=== PATIENT | male | born 1965 | race Two or more races ===

== ENCOUNTER 2017-10-09 12:38 | Inpatient (IN) | payer OTHER, SELFPAY ==
[~2017-10-09] VITALS: Ht 165.1 cm; Wt 76.7 kg
[2017-10-09] MEDS ORDERED: SODIUM CHLORIDE 0.9% 1,000 ML IV ONE ×2 (13:11→18:00)
[2017-10-09] MEDS ORDERED: ONDANSETRON ODT 4 MG ONE (13:23)
[2017-10-09 13:27] LABS: BASOPHILS # (AUTO) 0.01 x10^3/uL (0-0.1); BASOPHILS % (AUTO) 0 % (0-1); EOSINOPHILS # (AUTO) 0.06 x10^3/uL (0-0.4); EOSINOPHILS % (AUTO) 1 % (1-7); LYMPHOCYTES # (AUTO) 1.44 x10^3/uL (1-3.4); LYMPHOCYTES % (AUTO) 24 % (22-44); MD NO; MEAN CORPUSCULAR HGB CONC 33.8 g/dL (33.2-36.2); MEAN CORPUSCULAR VOLUME 88.6 fL (81-97); MEAN PLATELET VOLUME 8.3 fL (7.4-10.4); MONOCYTES # (AUTO) 0.48 x10^3/uL (0.2-0.8); MONOCYTES % (AUTO) 8 % (2-9); NEUTROPHILS # (AUTO) 3.91 x10^3/uL (1.8-6.8); NEUTROPHILS % (AUTO) 66 % (42-75); PLATELET COUNT 219 x10^3/uL (130-400); RED BLOOD COUNT 4.82 x10^6/uL (4.38-5.82); RED CELL DISTRIBUTION WIDTH 13.1 % (9.4-14.8)
[2017-10-09] MEDS ORDERED: SODIUM CHLORIDE 0.9% 1,000ML IVBOLUS ONE (13:30)
[2017-10-09] MEDS ORDERED: PLEASE ENTER ALLERGIES MC SCH (13:30)
[2017-10-09] MEDS ORDERED: ONDANSETRON ODT 4 MG PO ONE (13:30)
[2017-10-09] MEDS ORDERED: MORPHINE SULFATE 4 MG/ML, 1ML IVPush PRN (13:30)
[2017-10-09] MEDS ORDERED: SODIUM CHLORIDE FLUSH 10ML SYR IVF ONE (13:30)
[2017-10-09 13:40] LABS: ALANINE AMINOTRANSFERASE 35 U/L (12-78); ALBUMIN 3.5 g/dL (3.4-5.0); ANION GAP 2 mmol/L (5-15); CALCIUM 8.6 mg/dL (8.5-10.1); CHLORIDE 108 mmol/L (98-107); CREATININE 1.16 mg/dL (0.7-1.3)
[2017-10-09 13:42] LABS: ALKALINE PHOSPHATASE 87 U/L (45-117); BILIRUBIN,TOTAL 0.3 mg/dL (0.2-1.0); TOTAL PROTEIN 7.4 g/dL (6.4-8.2)
[2017-10-09] MEDS ORDERED: MORPHINE SULFATE 4 MG/ML, 1ML ONE (13:45)
[2017-10-09] MEDS ORDERED: OMNIPAQUE 350 MG/ML, 100ML BOTTLE ONE (14:09)
[2017-10-09 14:15] LABS: ACETONE, SERUM Negative (Negative)
[2017-10-09 15:40] LABS: MICROSCOPIC NOT IND
[2017-10-09 15:48] LABS: CULTURE INDICATED? NO
[2017-10-09 16:02] LABS: CLOSTRIDIUM DIFFICILE ANTIGEN NEGATIVE; CLOSTRIDIUM DIFFICILE TOXIN NEGATIVE (Negative)
[2017-10-09] MEDS ORDERED: SODIUM CHLORIDE FLUSH 10ML SYR IVF PRN (18:30)
[2017-10-09] MEDS ORDERED: ACETAMINOPHEN 325 MG TABLET PO PRN (19:30)
[2017-10-09] MEDS ORDERED: DOCUSATE 100 MG CAPSULE PO PRN (19:30)
[2017-10-09] MEDS ORDERED: ONDANSETRON 2MG/ML, 2ML IVPush PRN (19:30)
[2017-10-09] MEDS ORDERED: morphine SULFATE 10 MG/ML, 1ML IVPush PRN (19:30)
[2017-10-09] MEDS ORDERED: ENALAPRILAT 1.25 MG/ML, 2ML IVPush PRN (19:30)
[2017-10-09] MEDS ORDERED: POLYETHYLENE GLYCOL 17 GM PACKET PO PRN (19:30)
[2017-10-09] MEDS ORDERED: hydrALAzine 20 MG/ML, 1ML IVPush PRN (19:30)
[2017-10-09 20:00] VITALS: BP 128/77
[2017-10-09] MEDS ORDERED: ONDANSETRON ODT 4 MG PO PRN (20:00)
[2017-10-09 20:11] LABS: C-REACTIVE PROTEIN, QUANT 0.7 mg/dL (0.02-0.49)
[2017-10-09 20:16] LABS: HCT (SEDRATE) 42.7 % (39.2-51.8)
[2017-10-09 20:19] LABS: FREE T4 (FREE THYROXINE) 0.95 ng/dL (0.76-1.46); THYROID STIMULATING HORMONE 0.798 mIU/L (0.358-3.740)
[2017-10-09] MEDS: CEFTRIAXONE 2 GM in DEXTROSE 5% 50 ML IV SCH (20:20)
[2017-10-09] MEDS: SODIUM CHLORIDE 0.9% 1,000 ML IV SCH (20:20)
[2017-10-09 20:52] LABS: HEMOGLOBIN A1C 5.6 % (4.2-6.3)
[2017-10-09] MEDS: OXYcodone IR 5MG TABLET PO PRN (21:19)
[2017-10-09] MEDS: ATORVASTATIN 20 MG TABLET PO SCH (21:19)
[2017-10-09] MEDS: METRONIDAZOLE PMX 500MG/100ML 100 ML IV SCH (21:31)
[2017-10-09 22:39] LABS: OCCULT BLOOD NEGATIVE (NEGATIVE)
[2017-10-10 00:20] VITALS: BP 128/77
[2017-10-10 00:48] VITALS: BP 115/71
[2017-10-10] MEDS: METRONIDAZOLE PMX 500MG/100ML 100 ML IV SCH ×3 (04:39→21:05)
[2017-10-10] MEDS: SODIUM CHLORIDE 0.9% 1,000 ML IV SCH ×2 (04:40→16:07)
[2017-10-10 04:53] LABS: BASOPHILS # (AUTO) 0.03 x10^3/uL (0-0.1); BASOPHILS % (AUTO) 1 % (0-1); EOSINOPHILS # (AUTO) 0.12 x10^3/uL (0-0.4); EOSINOPHILS % (AUTO) 3 % (1-7); LYMPHOCYTES # (AUTO) 1.84 x10^3/uL (1-3.4); LYMPHOCYTES % (AUTO) 41 % (22-44); MD SCAN; MEAN CORPUSCULAR HEMOGLOBIN 30.1 pg (27.5-34.5); MEAN CORPUSCULAR HGB CONC 33.9 g/dL (33.2-36.2); MEAN CORPUSCULAR VOLUME 88.8 fL (81-97); MEAN PLATELET VOLUME 8.3 fL (7.4-10.4); MONOCYTES # (AUTO) 0.52 x10^3/uL (0.2-0.8); MONOCYTES % (AUTO) 12 % (2-9); NEUTROPHILS % (AUTO) 44 % (42-75); PLATELET COUNT 197 x10^3/uL (130-400); RED CELL DISTRIBUTION WIDTH 13.3 % (9.4-14.8)
[2017-10-10 05:01] LABS: ALBUMIN 2.9 g/dL (3.4-5.0); ANION GAP 5 mmol/L (5-15); CALCIUM 7.9 mg/dL (8.5-10.1); CHLORIDE 112 mmol/L (98-107)
[2017-10-10 05:05] LABS: ALANINE AMINOTRANSFERASE 29 U/L (12-78); ALKALINE PHOSPHATASE 70 U/L (45-117); BILIRUBIN,TOTAL 0.3 mg/dL (0.2-1.0); CHOL/HDL RATIO 3.5; CHOLESTEROL, TOTAL 138 mg/dL (140-239); CREATININE 0.92 mg/dL (0.7-1.3); HDL CHOL % 28 % (26-37); HDL CHOLESTEROL (DIRECT) 39 mg/dL (40-60); LDL CHOLESTEROL,CALCULATED 79 mg/dL (54-169); TOTAL PROTEIN 6.1 g/dL (6.4-8.2); TRIGLYCERIDES 99 mg/dL (50-200); VLDL CHOLESTEROL 20 mg/dL (0-25)
[2017-10-10 08:10] VITALS: BP 143/85
[2017-10-10] MEDS: LOSARTAN 25MG TABLET PO SCH (08:11)
[2017-10-10] MEDS: OXYcodone IR 5MG TABLET PO PRN ×2 (08:11→16:07)
[2017-10-10 09:45] VITALS: BP 121/75
[2017-10-10 16:26] LABS: CRYPTOSPORIDIUM ANTIGEN Negative (Negative)
[2017-10-10 17:16] VITALS: BP 121/72
[2017-10-10 19:11] VITALS: BP 112/70
[2017-10-10] MEDS: CEFTRIAXONE 2 GM in DEXTROSE 5% 50 ML IV SCH (19:21)
[2017-10-10] MEDS: ATORVASTATIN 20 MG TABLET PO SCH (21:05)
[2017-10-11 02:02] VITALS: BP 133/78
[2017-10-11] MEDS: METRONIDAZOLE PMX 500MG/100ML 100 ML IV SCH ×3 (05:17→21:38)
[2017-10-11 06:32] VITALS: BP 144/88
[2017-10-11] MEDS: LOSARTAN 25MG TABLET PO SCH (08:37)
[2017-10-11] MEDS: LACTOBACILLUS CHEW TABLET PO SCH ×3 (11:49→21:38)
[2017-10-11 12:55] VITALS: BP 111/68
[2017-10-11] MEDS ORDERED: LACTOBACILLUS CHEW TABLET PO SCH (16:00)
[2017-10-11 18:57] VITALS: BP 138/80
[2017-10-11] MEDS: CEFTRIAXONE 2 GM in DEXTROSE 5% 50 ML IV SCH (20:01)
[2017-10-11] MEDS: ATORVASTATIN 20 MG TABLET PO SCH (21:37)
[2017-10-12 00:40] VITALS: BP 147/89
[2017-10-12] MEDS: METRONIDAZOLE PMX 500MG/100ML 100 ML IV SCH ×2 (05:13→13:30)
[2017-10-12 05:39] LABS: BASOPHILS # (AUTO) 0.02 x10^3/uL (0-0.1); BASOPHILS % (AUTO) 0 % (0-1); EOSINOPHILS # (AUTO) 0.19 x10^3/uL (0-0.4); EOSINOPHILS % (AUTO) 4 % (1-7); LYMPHOCYTES % (AUTO) 43 % (22-44); MD NO; MEAN CORPUSCULAR HEMOGLOBIN 30.4 pg (27.5-34.5); MEAN CORPUSCULAR HGB CONC 34.2 g/dL (33.2-36.2); MEAN CORPUSCULAR VOLUME 88.8 fL (81-97); MEAN PLATELET VOLUME 8.5 fL (7.4-10.4); MONOCYTES # (AUTO) 0.42 x10^3/uL (0.2-0.8); MONOCYTES % (AUTO) 9 % (2-9); NEUTROPHILS # (AUTO) 2.19 x10^3/uL (1.8-6.8); NEUTROPHILS % (AUTO) 45 % (42-75); PLATELET COUNT 219 x10^3/uL (130-400); RED BLOOD COUNT 4.59 x10^6/uL (4.38-5.82)
[2017-10-12 05:49] LABS: ANION GAP 7 mmol/L (5-15); CALCIUM 8.6 mg/dL (8.5-10.1); CHLORIDE 111 mmol/L (98-107)
[2017-10-12 07:27] VITALS: BP 141/89
[2017-10-12] MEDS ORDERED: ACID1TAB7 PO (07:36)
[2017-10-12] MEDS ORDERED: METR500T PO (07:36)
[2017-10-12] MEDS ORDERED: CEFD300C37 PO (07:36)
[2017-10-12] MEDS: LOSARTAN 25MG TABLET PO SCH (07:38)
[2017-10-12] MEDS: LACTOBACILLUS CHEW TABLET PO SCH (07:38)
[2017-10-12 12:23] VITALS: BP 111/67
== END 2017-10-12 14:45 | disposition home or self-care (01) | DRG 392 ==
LOC: ED 13:40 → EDIP 17:23 → 3NE 18:10 → DCLOUNGE 10-12 14:30
PROVIDERS: ADMIT Hospitalist; ATTEND Hospitalist
DX: A09 Infectious gastroenteritis and colitis, unspecified (principal); E78.00 Pure hypercholesterolemia, unspecified; E78.5 Hyperlipidemia, unspecified; I10 Essential (primary) hypertension; G89.29 Other chronic pain; K21.9 Gastro-esophageal reflux disease without esophagitis; Z83.3 Family history of diabetes mellitus
CPT/HCPCS: 36415; 74177; 80048; 80053; 80061; 81003; 82010; 82272; 83036; 83605; 83690; 83735; 84439; 84443; 85025; 85651; 86140; 87046; 87324; 87328; 87329; 87427; 89055; 96361; 96374; Q0162; Q9967; J7030